=== PATIENT | male | born 1950 | race Caucasian/White ===

== ENCOUNTER 2016-07-10 21:26 | Emergency (ER) ==
[2016-07-10 21:35] VITALS: BP 116/71; TEMP 101.8; BMI 30.7
[2016-07-10 21:59] LABS: FLU INTERNAL QC INTERNAL QC VALID; RAPID FLU A NEGATIVE (NEGATIVE); RAPID FLU B NEGATIVE (NEGATIVE)
[2016-07-10] MEDS ORDERED: KEFLEX PO STA (22:05)
[2016-07-10] MEDS ORDERED: ROBITUSSIN AC SYRUP PO STA (22:05)
--- NOTE | 2016-07-10 22:08 | ED.PDOC ---
General ED Provider: Dr. FREEDOM DOUGLAS-ER Chief Complaint: Cough Stated Complaint: hipolito been coughing with fever and my body hurts Time Seen by Physician: 21:30 Mode of Arrival: Walk-In Information Source: Patient, Family Exam Limitations: No limitations Primary Care Provider: RAMIN DEVLIN Nursing and Triage Documentation Reviewed and Agree: Yes Respiratory Complaint Exam - Respiratory Complaint/Exam Onset/Duration: 24hrs Symptoms Are: Still present Timing: Intermittent Initial Severity: Mild Current Severity: Mild Location: Chest Character: Reports: Non-productive cough Aggravating: Reports: URI Alleviating: Reports: None Associated Signs and Symptoms: Reports: Fever, Chills, URI, Nasal congestion, Sore throat. Denies: Rapid breathing, Dyspnea, Chest pain, Pleuritic chest pain , Wheezing, Hemoptysis, Dizziness, Calf pain, Calf swelling, Edema, Hoarseness, Sinus discomfort, Vomiting, Weight loss, Decreased oral intake, Increased thirst , Increased appetite, Increased urination History of Healthcare-Acquired Pneumonia: No Tuberculosis Risk Factors: Reports: None Status Asthmaticus Risk Factors: Reports: None Home Oxygen Use: No Recent Stress Test: No Recent Echo/LV Function: No Current Antibiotic Use: No Current Asthma Medication Use: No Respiratory Distress: None Inadequate Respiratory Effort: No Dysphagia Present: No Stridor Present: No JVD Present: No Accessory Muscle Use: No Retractions: Not Present Diminished Breath Sounds: No Sinus Tenderness: None Grunting Respirations: No Kussmaul Respirations: No Differential Diagnoses: Bronchitis, URI, Influenza Review of Systems - Review Of Systems Constitutional: Reports: Chills, Fever Eyes: Reports: No symptoms Ears, Nose, Mouth, Throat: Reports: Nose discharge, Throat pain Respiratory: Reports: Cough Cardiac: Reports: No symptoms GI: Reports: No symptoms : Reports: No symptoms Musculoskeletal: Reports: No symptoms Skin: Reports: No symptoms Neurological: Reports: No symptoms Endocrine: Reports: No symptoms Hematologic/Lymphatic: Reports: No symptoms All Other Systems: Reviewed and Negative Past Medical History - Past Medical History Endocrine: Reports: DM 2, Hypothyroid Cardiovascular: Reports: CAD, Hypertension Respiratory: Reports: None Hematological: Reports: None Gastrointestinal: Reports: GERD Genitourinary: Reports: CKD Neuro/Psych: Reports: None Musculoskeletal: Reports: Arthritis Cancer: Reports: Skin Other Pertinent Past Medical History: NIDDM ,BLOOD STREAM CATHETER INFECTION - Surgical History General Surgical History: Reports: Orthopedic (-FX LEFT HUMERUS-SHOULDER REPLACEMENT RT--NEW JOINT TO GREAT TOE), Other ( SKIN CA ). Denies: Gastric Bypass (STOMACH VALVE SURG) - Family History Family History: Reports: Diabetes (sister poor control on pump) - Social History Smoking Status: Former smoker Hx Substance Use: No Alcohol Screening: None Lives: With family - Immunizations Tetanus Shot up to Date: Yes Physical Exam - Physical Exam Appearance: Well-appearing, No pain distress, Well-nourished Eyes: DIXON, EOMI, Conjunctiva clear ENT: Ears normal, Nose normal, Oropharynx normal Neck: Supple Respiratory: Rhonchi Cardiovascular: RRR, Pulses normal, No rub, No murmur GI/: Soft, Nontender, No masses, Bowel sounds normal, No Organomegaly Musculoskeletal: Normal strength Skin: Warm Neurological: Sensation intact, Motor intact, Reflexes intact, Cranial nerves intact, Alert, Oriented Psychiatric: Affect appropriate, Mood appropriate Interpretation - Radiology Interpretation Radiology Interpretation By: ED Physician Radiology Results: Negative Exam Interpreted: CXR Critical Care Note - Critical Care Note Total Time (mins): 0 Course - Course Orders, Labs, Meds: Lab Review 07/10/16 21:40 Influenza A (Rapid) Negative Influenza B (Rapid) Negative Orders Category Date Time Status MOLECULAR GROUP A STREP Stat LAB 07/10/16 21:40 Results RAPID FLU A/B Stat LAB 07/10/16 21:40 Completed STREP SCREEN Stat LAB 07/10/16 21:40 Results Cephalexin [Keflex] MEDS 07/10/16 22:05 Stat 500 mg PO ONCE STA Guaifenesin/Codeine Phosphate [Robitussin AC Syrup] MEDS 07/10/16 22:05 Stat 10 ml PO ONCE STA Oseltamivir Phosphate [Tamiflu] MEDS 07/10/16 22:30 Ordered 75 mg PO ONCE CXR [CHEST, 2 VIEWS PA & LAT] Stat RADS 07/10/16 21:37 Taken Vital Signs: Temp Pulse Resp BP Pulse Ox 07/10/16 21:27 101.8 F H 88 24 116/71 95 Departure - Departure Time of Disposition: 22:08 Disposition: HOME SELF-CARE Discharge Problem: Bronchitis URI (upper respiratory infection) Qualifiers: URI type: unspecified viral URI Qualifier Code: (J06.9) Acute upper respiratory infection, unspecified Instructions: Upper Respiratory Infection (ED) Condition: Good Pt referred to PMD for follow-up: Yes Additional Instructions: keflex 500mg bid x 7days--tamiflu 75mg bid x 5 days---robitussin ac 2 tsps q 6hrs prn cough 150cc--fluids...rest--rechck in 72hrs if not improved Allergies/Adverse Reactions: Allergies adhesive Adverse Reaction (Verified 07/10/16 21:34) latex Adverse Reaction (Verified 07/10/16 21:34) BETADYNE Adverse Reaction (Uncoded 07/10/16 21:34) Home Medications: Ambulatory Orders Albuterol Sulfate [Proair Hfa] 2 puff IH Q4H 08/09/13 Febuxostat [Uloric] 40 mg PO DAILY 08/09/13 Fenofibrate [Tricor] 160 mg PO BEDTIME 08/09/13 Finasteride [Proscar] 5 mg PO DAILY 08/09/13 Fluticasone Propionate [Flonase] 2 spray NS DAILY 08/09/13 Furosemide [Lasix Tab] 20 mg PO BIDAC 08/09/13 Glyburide [Diabeta] 10 mg PO BIDBRS 08/09/13 Levothyroxine Sodium [Synthroid] 125 mcg PO DAILY 08/09/13 Lisinopril [Zestril] 20 mg PO BID 08/09/13 Nebivolol HCl [Bystolic] 20 mg PO BID 08/09/13 Nifedipine [Procardia Xl] 60 mg PO DAILY 08/09/13 [place]-3 Fatty Acids [Fish Oil] 1,000 mg PO BID 08/09/13 Sitagliptin Phosphate [Januvia] 100 mg PO DAILY 08/09/13 Spironolactone [Aldactone] 25 mg PO BID 08/09/13 Dapagliflozin Propanediol [Farxiga] 10 mg PO DAILY #30 tablet 06/11/15 Fluticasone/Salmeterol 100/50 [Advair 100-50 Diskus] 1 puff IH BID 06/11/15 Sodium Bicarbonate 650 mg PO Q12H 06/11/15 Disposition Discussed With: Patient, Family
[2016-07-10] MEDS ORDERED: TAMIFLU ONE (22:09)
[2016-07-10] MEDS ORDERED: TAMIFLU PO SCH (22:30)
--- NOTE | 2016-07-11 03:34 | DI ---
EXAM: Chest, two views, 07/10/2016 HISTORY: Cough COMPARISON: 04/14/2010 FINDINGS / IMPRESSION: Cardiomediastinal contours appear within normal limits. Bibasilar atelectasis. No focal pulmonary consolidation. No pleural effusion or pneumothorax.
== END 2016-07-10 22:18 | disposition home or self-care (01) ==
LOC: ED 21:26
DX: J20.9 Acute bronchitis, unspecified (principal); J06.9 Acute upper respiratory infection, unspecified; Z87.891 Personal history of nicotine dependence
CPT/HCPCS: 87651; 87804; 87880; 99283

== ENCOUNTER 2016-08-23 22:16 | Emergency (ER) | payer OTHER ==
[2016-08-23] MEDS ORDERED: ZOFRAN 4 MG/2 ML IM STA (22:29)
[2016-08-23] MEDS ORDERED: PROTONIX IV IVP STA (22:29)
[2016-08-23 22:31] VITALS: BP 135/85; TEMP 100.4; BMI 30.9
--- NOTE | 2016-08-23 22:43 | ED.PDOC ---
General ED Provider: Dr. CHOLO GUO Chief Complaint: Nausea/Vomiting Stated Complaint: Nausea vomiting since 630 pm today, his had similar problem couple days ago, not hurting,. Time Seen by Physician: 22:41 Mode of Arrival: Walk-In Information Source: Patient Primary Care Provider: RAMIN DEVLIN Nursing and Triage Documentation Reviewed and Agree: Yes GI Complaint Exam - Vomiting/Diarrhea Complaint/Exam Symptoms Are: Still present Episodes of Vomiting over last 24 Hours: 5 Episodes of Diarrhea Over Last 24 Hours: 0 Initial Severity: Moderate Current Severity: Moderate Character of Vomiting: Reports: Non-bilious Aggravating: Reports: Food, Liquids, Position Alleviating: Reports: None Associated Signs and Symptoms: Reports: Cramping. Denies: Dizziness, Light- headedness, Melena, Hematemesis, Fever, Abdominal pain Related History: Reports: Similar episode Non-GI Risk Factors: Reports: None Surgical Obstruction Risk Factors: Reports: None Related Surgical History: Reports: None Abdominal Findings: Absent: Pulsatile mass, Abdominal distention, Hernia Differential Diagnoses: Viral Gastroenteritis, Bacterial Gastroenteritis Review of Systems - Review Of Systems Constitutional: Reports: Malaise, Weakness Eyes: Reports: No symptoms Ears, Nose, Mouth, Throat: Reports: No symptoms Respiratory: Reports: No symptoms Cardiac: Reports: No symptoms GI: Reports: Nausea, Vomiting : Reports: No symptoms Musculoskeletal: Reports: No symptoms Skin: Reports: No symptoms Neurological: Reports: No symptoms Endocrine: Reports: No symptoms Hematologic/Lymphatic: Reports: No symptoms All Other Systems: Reviewed and Negative Past Medical History - Past Medical History Endocrine: Reports: DM 2, Hypothyroid Cardiovascular: Reports: CAD, Hypertension Respiratory: Reports: None Hematological: Reports: None Gastrointestinal: Reports: GERD Genitourinary: Reports: CKD Neuro/Psych: 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 Denies: Gastric Bypass (STOMACH VALVE SURG) - Family History Family History: Reports: Diabetes (sister poor control on pump) - Social History Smoking Status: Former smoker Hx Substance Use: No Alcohol Screening: None - Immunizations Tetanus Shot up to Date: Yes Physical Exam - Physical Exam Appearance: Ill-appearing, Obese Ill-appearing: Moderate Eyes: DIXON, EOMI, Conjunctiva clear ENT: Ears normal, Nose normal, Oropharynx normal Respiratory: Airway patent, Breath sounds clear, Breath sounds equal, Respirations nonlabored Cardiovascular: RRR, Pulses normal, No rub, No murmur GI/: Soft, Nontender, No masses, No Organomegaly, Bowel sounds hyperactive Musculoskeletal: Normal strength, ROM intact, No edema, No calf tenderness Skin: Warm, Dry, Normal color Neurological: Sensation intact, Motor intact, Reflexes intact, Cranial nerves intact, Alert, Oriented Psychiatric: Affect appropriate, Mood appropriate Re-Evaluation - Re-Evaluation Time of Re-Evaluation: 23:53 Status: Improved Critical Care Note - Critical Care Note Total Time (mins): 0 Course - Course Hematology/Chemistry: 08/23/16 22:50 08/23/16 22:50 Orders, Labs, Meds: Lab Review 08/23/16 08/23/16 08/23/16 22:32 22:37 22:50 WBC 16.11 H RBC 6.25 H Hgb 18.3 H Hct 55.6 H MCV 89.0 MCH 29.3 MCHC 32.9 RDW Coeff of Valdemar 14.5 Plt Count 187 Immature Gran % (Auto) 0.6 Neut % (Auto) 87.6 Lymph % (Auto) 2.7 L [place] % (Auto) 7.8 Eos % (Auto) 0.7 Baso % (Auto) 0.6 Immature Gran # (Auto) 0.1 Neut # 14.1 H Lymph # 0.4 L [place] # 1.3 Eos # 0.1 Baso # 0.1 Sodium 139 Potassium 3.9 Chloride 107 Carbon Dioxide 24 Anion Gap 11.9 BUN 23 H Creatinine 1.11 H Estimated GFR (MDRD) 66.00 BUN/Creatinine Ratio 20.72 Glucose 196 H Calcium 8.3 Total Bilirubin 0.57 AST 11 L ALT 12 Alkaline Phosphatase 70 Total Protein 6.3 Albumin 3.6 Globulin 2.7 Albumin/Globulin Ratio 1.33 Amylase 43 Lipase 36 Urine Color Yellow Urine Clarity Clear Urine pH 5.5 Ur Specific [place] 1.010 Urine Protein Negative Urine Glucose (UA) 2+ Urine Ketones Trace Urine Blood Negative Urine Nitrite Negative Urine Bilirubin Negative Urine Urobilinogen 0.2 Ur Leukocyte Esterase Negative Influenza A (Rapid) Negative Influenza B (Rapid) Negative Orders Category Date Time Status ED IV/MEDIPORT/POWERPORT .ONCE EMERGENCY 08/23/16 22:29 Active AMYLASE Stat LAB 08/23/16 22:50 Completed CBC W/ AUTO DIFF Stat LAB 08/23/16 22:50 Completed COMPREHENSIVE METABOLIC PANEL Stat LAB 08/23/16 22:50 Completed LIPASE Stat LAB 08/23/16 22:50 Completed RAPID FLU A/B Stat LAB 08/23/16 22:32 Completed URINALYSIS C & S IF INDICATED Stat LAB 08/23/16 22:37 Completed 0.9 % Sodium Chloride [Saline Flush] MEDS 08/23/16 22:29 Ordered 1 syr IVF PRN PRN Ondansetron HCl/Pf [Zofran 4 mg/2 ml] MEDS 08/23/16 22:29 Discontinued 4 mg IM ONCE STA Pantoprazole Sodium [Protonix IV] MEDS 08/23/16 22:29 Discontinued [address] ABDOMEN/PELVIS WO CONTRAST Stat RADS 08/23/16 22:29 Completed Medications Generic Name Dose Route Start Last Admin Trade Name Freq PRN Reason Stop Dose Admin Sodium Chloride 1 syr 08/23/16 22:29 Saline Flush IVF PRN PRN To flush IV Discontinued Medications Generic Name Dose Route Start Last Admin Trade Name Freq PRN Reason Stop Dose Admin Ondansetron HCl 4 mg 08/23/16 22:29 08/23/16 23:10 Zofran 4 Mg/2 Ml IM 08/23/16 22:30 4 mg ONCE STA Administration Pantoprazole Sodium 40 mg 08/23/16 22:29 08/23/16 23:09 Protonix Iv IVP 08/23/16 22:30 40 mg ONCE STA Administration Vital Signs: Temp Pulse Resp BP Pulse Ox 08/23/16 22:17 100.4 F H 89 20 135/85 95 Departure - Departure Time of Disposition: 23:57 Disposition: HOME SELF-CARE Discharge Problem: Gastroenteritis Instructions: Dehydration (ED), Gastroenteritis (ED) Condition: Stable Pt referred to PMD for follow-up: Yes Additional Instructions: increase hydration soft diet for 3-4 days Prescriptions: Ondansetron [Zofran Odt] 4 mg PO Q8H #20 tab.rapdis Allergies/Adverse Reactions: Allergies adhesive Adverse Reaction (Verified 08/23/16 22:25) latex Adverse Reaction (Verified 08/23/16 22:25) BETADYNE Adverse Reaction (Uncoded 08/23/16 22:25) Home Medications: Ambulatory Orders Albuterol Sulfate [Proair Hfa] 2 puff IH Q4H PRN 08/09/13 Fluticasone Propionate [Flonase] 1 spray NS DAILY PRN 08/09/13 Levothyroxine Sodium [Synthroid] 125 mcg PO DAILY 08/09/13 Lisinopril [Zestril] 20 mg PO BID 08/09/13 Nifedipine [Procardia Xl] 60 mg PO DAILY 08/09/13 Acetaminophen/Diphenhydramine [Tylenol Pm Ex-Strength Caplet] 2 each PO BEDTIME 07/10/16 Aspirin [Aspirin EC] 81 mg PO DAILYWM 07/10/16 Citalopram Hydrobromide [Citalopram HBr] 20 mg PO DAILY 07/10/16 Clopidogrel Bisulfate [Clopidogrel] 75 mg PO DAILY 07/10/16 Omeprazole [Prilosec] 20 mg PO QDAC 07/10/16 Ondansetron [Zofran Odt] 4 mg PO Q8H #20 tab.rapdis 08/23/16 Disposition Discussed With: Patient, Family
[2016-08-23 22:45] LABS: BILIRUBIN,URINE Negative (NEGATIVE); KETONES,URINE Trace (NEGATIVE); LEUKOCYTE ESTERASE ,URINE Negative (NEGATIVE); NITRITE,URINE Negative (NEGATIVE); PH,URINE 5.5 (5-9); PROTEIN,URINE Negative (NEGATIVE); URINE, BLOOD Negative (NEGATIVE)
[2016-08-23 22:46] LABS: ADD URINE MICROSCOPIC NO
[2016-08-23 22:58] LABS: FLU INTERNAL QC INTERNAL QC VALID; RAPID FLU A NEGATIVE (NEGATIVE); RAPID FLU B NEGATIVE (NEGATIVE)
[2016-08-23 23:02] LABS: BASOPHILS # (AUTO) 0.1 K/uL (0-0.2); BASOPHILS % (AUTO) 0.6 % (0.0-3.0); EOSINOPHILS # (AUTO) 0.1 K/ul (0.0-0.7); EOSINOPHILS % (AUTO) 0.7 % (0.0-7.0); HEMATOCRIT 55.6 % (42.0-52.0); HEMOGLOBIN 18.3 g/dl (14.0-18.0); IMMATURE GRANULOCYTE % (AUTO) 0.6 % (0.0-5.0); LYMPHOCYTES # (AUTO) 0.4 K/uL (0.60-3.4); LYMPHOCYTES % (AUTO) 2.7 (10.0-50.0); MEAN CORPUSCULAR HEMOGLOBIN 29.3 pg (27.0-31.0); MEAN CORPUSCULAR HGB CONC 32.9 (31.8-35.4); MONOCYTES # (AUTO) 1.3 K/uL (0.4-2.0); MONOCYTES % (AUTO) 7.8 (0-10); NEUTROPHILS # (AUTO) 14.1 K/ul (2.0-6.9); NEUTROPHILS % (AUTO) 87.6; PLATELET COUNT 187 10^3/uL (140-440); RED BLOOD COUNT 6.25 10^6/ul (4.70-6.10); WHITE BLOOD COUNT 16.11 K/ul (4.2-10.2)
--- NOTE | 2016-08-23 23:09 | CT ---
EXAM: CT of the abdomen and pelvis without contrast. HISTORY: Nausea vomiting and abdominal pain. PROCEDURE: Contiguous axial CT images of the abdomen and pelvis without contrast with coronal and s agittal reformats. FINDINGS: The liver is normal in appearance. The gallbladder is surgically absent. The pancreas, s pleen, adrenal glands and right kidney are normal in appearance. There is a fluid density cyst in t he left kidney. There is mild focal aneurysmal dilatation of the infrarenal abdominal aorta which me asures up to 2.9 cm in diameter with no evidence of aneurysm leak. The appendix is normal in appeara nce. There is fecal stasis in the colon. There is diverticulosis of the colon with no evidence of diverticulitis. No bowel obstruction. No free fluid or free air in the abdomen or pelvis. The bladde r is minimally filled with no abnormality identified. There are degenerative changes in the spine. Impression: Diverticulosis of the colon without diverticulitis. Fecal stasis in the colon. Infrarenal abdominal aortic aneurysm as described. Simple left renal cysts. Cholecystectomy.
[2016-08-23 23:15] LABS: ALBUMIN 3.6 g/dL (3.4-5.0); ALBUMIN/GLOBULIN RATIO 1.33; ANION GAP 11.9; BILIRUBIN,TOTAL 0.57 mg/dL (0.00-1.20); BUN/CREATININE RATIO 20.72; CALCIUM 8.3 mg/dL (8.2-10.2); CREATININE 1.11 mg/dL (0.60-1.10); POTASSIUM 3.9 mmol/L (3.5-5.1); TOTAL PROTEIN 6.3 g/dL (5.8-8.1)
== END 2016-08-24 00:10 | disposition home or self-care (01) ==
LOC: ED 22:16
DX: K52.9 Noninfective gastroenteritis and colitis, unspecified (principal); E86.0 Dehydration; E11.9 Type 2 diabetes mellitus without complications; E03.9 Hypothyroidism, unspecified; I10 Essential (primary) hypertension; Z79.899 Other long term (current) drug therapy
CPT/HCPCS: 36415; 80053; 81001; 82150; 83690; 85025; 87804; 96374; 96375; 99283

== ENCOUNTER 2017-06-19 14:15 | Outpatient (CLI) ==
--- NOTE | 2017-06-19 14:44 | DI ---
EXAM: LEFT WRIST THREE VIEWS HISTORY: Wrist pain FINDINGS / IMPRESSION: Compared to 09/30/2008. General bone density may be mildly decreased. There is subtle osteoarthritis involving the radiocarp al and first carpal-metacarpal joints. Incidental note of a pseudoarticulation between the distal ul na and radius with ulnar negative variance. No fracture or joint dislocation.
== END 2017-06-19 14:16 | disposition home or self-care (01) ==
LOC: RAD 14:15
PROVIDERS: ATTEND Family Medicine
DX: M25.532 Pain in left wrist (principal)

== ENCOUNTER 2017-11-21 16:35 | Outpatient (CLI) | payer OTHER ==
--- NOTE | 2017-11-21 22:29 | DI ---
EXAM: Two-view chest HISTORY: Cough COMPARISON: Two-view chest 07/10/2016 FINDINGS: The cardiomediastinal silhouette is stable.. There is a hiatal hernia. Basilar atelectas is versus scarring overlying the left lateral costophrenic angle. IMPRESSION: Hiatal hernia. Minimal atelectasis versus scarring overlying the left lateral costophrenic angle
== END 2017-11-21 16:36 | disposition home or self-care (01) ==
LOC: RAD 16:35
PROVIDERS: ATTEND Family Medicine
DX: T17.908D Unspecified foreign body in respiratory tract, part unspecified causing other injury, subsequent encounter (principal); R05 Cough; R06.2 Wheezing; Z86.73 Personal history of transient ischemic attack (TIA), and cerebral infarction without residual deficits

== ENCOUNTER 2018-08-20 20:23 | Emergency (ER) ==
[2018-08-20] MEDS ORDERED: LACTATED RINGERS 1,000 ML IV STA (20:33)
[2018-08-20] MEDS ORDERED: ZOFRAN 4 MG/2 ML IVP STA (20:33)
[2018-08-20] MEDS ORDERED: MORPHINE 4 MG/ML SYRINGE IVP STA (20:33)
[2018-08-20 20:34] VITALS: BMI 34.9
--- NOTE | 2018-08-20 20:42 | ED.PDOC ---
General ED Provider: Dr. FELICITA JOHNSON Chief Complaint: Abdominal Pain Stated Complaint: Patient is a 68 year old male who comes to the ER with severe diffuse abdominal pain that started after eating supper tonight probably one hours ago. states his abdomen is severely distended. Last bowel movement was today. Had had a prior history of Herital hernia and fudoplication. Time Seen by Physician: 20:40 Mode of Arrival: Walk-In Information Source: Patient Exam Limitations: Clinical condition Primary Care Provider: RAMIN DEVLIN Nursing and Triage Documentation Reviewed and Agree: Yes Does patient meet sepsis criteria?: No System Inflammatory Response Syndrome: Not Applicable Sepsis Protocol: For patient's 13 years and over: Temp is 96.8 and below OR 101 and greater Pulse >90 BPM Resp >20/minute Acutely Altered Mental Status Are patient's symptoms suggestive of a new infection, such as: -Pneumonia -Skin, Soft Tissue -Endocarditis -UTI -Bone, Joint Infection -Implantable Device -Acute Abdominal Infection -Wound Infection -Meningitis -Blood Stream Catheter Infection -Unknown GI Complaint Exam - Abdominal Pain Complaint/Exam Onset: Sudden Duration: 2 hours Symptoms Are: Still present Timing: Constant Initial Severity: Severe Current Severity: Severe Location of Pain: Diffuse Character: Reports: Aching, Throbbing, Cramping Alleviating: Reports: None Associated Signs and Symptoms: Reports: Nausea AAA Risk Factors: Reports: Hypertension Cardiac Risk Factors: Reports: DM, Hypertension, CAD Testicular Torsion Risk Factors: Reports: None Surgical Obstruction Risk Factors: Reports: Colicky abdominal pain, Prior abdominal surgery Related Surgical History: Reports: Cholecystectomy, Appendectomy Abdominal Findings: Present: Abdominal distention (severely), Peritoneal signs Differential Diagnoses: Bowel Obstruction, Diverticulitis, Pancreatitis, GB, PUD Quality Indicators for AMI: EKG in 10min. Quality Indicator For Non-Traumatic Chest Pain/Syncope: EKG Performed Review of Systems - Review Of Systems Constitutional: Reports: Loss of appetite Eyes: Reports: No symptoms Ears, Nose, Mouth, Throat: Reports: No symptoms Respiratory: Reports: No symptoms Cardiac: Reports: No symptoms GI: Reports: Abdominal pain, Nausea, Poor appetite, Vomiting : Reports: No symptoms Musculoskeletal: Reports: No symptoms Skin: Reports: No symptoms Neurological: Reports: Anxiety All Other Systems: Reviewed and Negative Past Medical History - Past Medical History Endocrine: Reports: DM 2, Hypothyroid Cardiovascular: Reports: CAD, Hypertension Respiratory: Reports: None Hematological: Reports: None Gastrointestinal: Reports: GERD Genitourinary: Reports: CKD 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 - Surgical History General Surgical History: Reports: Appendectomy, Cholecystectomy, Orthopedic (- FX LEFT HUMERUS-SHOULDER REPLACEMENT RT--NEW JOINT TO GREAT TOE), Other (Skin cancer ). Denies: Gastric Bypass (STOMACH VALVE SURG) - Family History Family History: Reports: Diabetes (sister poor control on pump) - Social History Smoking Status: Former smoker Hx Substance Use: No Alcohol Screening: None - Immunizations Tetanus Shot up to Date: Yes Physical Exam - Physical Exam Appearance: Ill-appearing, Obese Ill-appearing: Severe Pain Distress: Severe Eyes: Conjunctiva clear ENT: Oropharynx normal Neck: Supple Respiratory: Airway patent, Breath sounds clear, Breath sounds equal, Respirations nonlabored Cardiovascular: RRR, Pulses normal, No rub, No murmur GI/: Bowel sounds normal, Tender Musculoskeletal: Normal strength, ROM intact, No edema, No calf tenderness Skin: Warm, Dry, Normal color Neurological: Alert, Oriented Psychiatric: Anxious Interpretation - Radiology Interpretation Radiology Interpretation By: Radiologist Radiology Results: Positive Exam Interpreted: CT Scan - Geophysical Party Chief Rate: Normal Rhythm: Sinus - EKG Interpretation Time of EKG #1: 20:35 Rate: Normal Rhythm: Sinus [place]: NL ST Segment: Normal Interpretation: RSR' Re-Evaluation - Re-Evaluation Time of Re-Evaluation: 21:49 Status: Improved (slighlty after NG tube Placement ) Vital Signs Stable: Yes Physician Notification - Case Discussed Physician Notified: Dr Antoine Time of Notification: 21:45 (transfer to the ER) Physician Notified: Dr. Lyle Time of Notification: 21:50 (accepted for transfer ) Critical Care Note - Critical Care Note Total Time (mins): 80 Comments: NG tube noted to be in the upper esophagus. EMS called and asked to remove it Course - Course Hematology/Chemistry: 08/20/18 20:38 08/20/18 20:38 Orders, Labs, Meds: Lab Review 08/20/18 08/20/18 08/20/18 20:38 20:38 20:51 WBC 9.94 RBC 5.25 Hgb 15.3 Hct 47.5 MCV 90.5 MCH 29.1 MCHC 32.2 RDW Coeff of Valdemar 14.5 Plt Count 168 Immature Gran % (Auto) 0.5 Neut % (Auto) 69.4 Lymph % (Auto) 20.5 [place] % (Auto) 7.7 Eos % (Auto) 1.4 Baso % (Auto) 0.5 Immature Gran # (Auto) 0.1 Neut # (Auto) 6.9 Lymph # (Auto) 2.0 [place] # (Auto) 0.8 Eos # (Auto) 0.1 Baso # (Auto) 0.1 Puncture Site O2 Saturation ABG pH ABG pCO2 ABG pO2 ABG HCO3 ABG Total CO2 ABG Base Excess J Luis Test O2 Delivery Device Oxygen Liter Flow FiO2 % Sodium 139.6 Potassium 3.75 Chloride 102.6 Carbon Dioxide 25.6 Anion Gap 15.15 BUN 17.2 Creatinine 0.81 Estimated GFR (MDRD) 94.00 BUN/Creatinine Ratio 21.23 Glucose 212.6 H Lactic Acid Calcium 9.21 Total Bilirubin 0.44 AST 34.8 ALT 24.9 Alkaline Phosphatase 86.1 Total Protein 7.23 Albumin 4.34 Globulin 2.89 Albumin/Globulin Ratio 1.50 Amylase 221.9 H Lipase 3352.1 H Procalcitonin < 0.05 08/20/18 08/20/18 20:51 22:00 WBC RBC Hgb Hct MCV MCH MCHC RDW Coeff of Valdemar Plt Count Immature Gran % (Auto) Neut % (Auto) Lymph % (Auto) [place] % (Auto) Eos % (Auto) Baso % (Auto) Immature Gran # (Auto) Neut # (Auto) Lymph # (Auto) [place] # (Auto) Eos # (Auto) Baso # (Auto) Puncture Site Rrad O2 Saturation 82.0 L ABG pH 7.110 L* ABG pCO2 81.5 H ABG pO2 64.0 L ABG HCO3 25.9 ABG Total CO2 28 ABG Base Excess -4 L J Luis Test + O2 Delivery Device Nrb Oxygen Liter Flow 15.00 FiO2 % 100.0 Sodium Potassium Chloride Carbon Dioxide Anion Gap BUN Creatinine Estimated GFR (MDRD) BUN/Creatinine Ratio Glucose Lactic Acid 1.12 Calcium Total Bilirubin AST ALT Alkaline Phosphatase Total Protein Albumin Globulin Albumin/Globulin Ratio Amylase Lipase Procalcitonin Orders Category Date Time Status ABG DRAW REQUEST Stat CARDIO 08/20/18 22:08 Completed EKG-(ED ONLY) Stat CARDIO 08/20/18 20:33 Completed NEBULIZER TREATMENT Stat CARDIO 08/20/18 22:07 Completed ED IV/MEDIPORT/POWERPORT .ONCE EMERGENCY 08/20/18 20:33 Active NG Tube [ED NASOGASTRIC TUBE INSERTION] .ONCE EMERGENCY 08/20/18 21:26 Active ABG Stat LAB 08/20/18 22:00 Completed AMYLASE Stat LAB 08/20/18 20:38 Completed BLOOD CULTURE (ED ONLY) Stat LAB 08/20/18 20:51 Received CBC W/ AUTO DIFF Stat LAB 08/20/18 20:38 Completed COMPREHENSIVE METABOLIC PANEL Stat LAB 08/20/18 20:38 Completed LACTIC ACID Stat LAB 08/20/18 20:51 Completed LIPASE Stat LAB 08/20/18 20:38 Completed PROCALCITONIN Stat LAB 08/20/18 20:51 Completed 0.9 % Sodium Chloride [Saline Flush] MEDS 08/20/18 20:33 Discontinued 1 syr IVF PRN PRN Hydromorphone HCl [Dilaudid 1 mg/ml Syringe] MEDS 08/20/18 20:47 Discontinued 1 mg IVP ONCE STA Hydromorphone HCl [Dilaudid 1 mg/ml Syringe] MEDS 08/20/18 21:27 Discontinued 1 mg IVP ONCE STA Ipratropium/Albuterol Neb [Duoneb] MEDS 08/20/18 22:07 Discontinued 1 vial NEB .STK-MED ONE Ipratropium/Albuterol Neb [Duoneb] MEDS 08/20/18 22:07 Discontinued 1 vial NEB ONCE STA Morphine Sulfate [Morphine 4 mg/ml Syringe] MEDS 08/20/18 20:33 Discontinued 4 mg IVP ONCE STA Ondansetron HCl/Pf [Zofran 4 mg/2 ml] MEDS 08/20/18 20:33 Discontinued 4 mg IVP ONCE STA Ringers Lactated Solution [Lactated Ringers] 1,000 ml MEDS 08/20/18 20:33 Discontinued IV BOLUS CHEST, 1V AP ONLY Stat RADS 08/20/18 21:[address] ABD/PEL WO RENAL STONE PROT Stat RADS 08/20/18 20:[address] CHEST W/O CONTRAST Stat RADS 08/20/18 21:21 Completed Medications Discontinued Medications Generic Name Dose Route Start Last Admin Trade Name Freq PRN Reason Stop Dose Admin Albuterol/Ipratropium 1 vial 08/20/18 22:07 Duoneb NEB 08/20/18 22:08 ONCE STA Hydromorphone HCl 1 mg 08/20/18 20:47 08/20/18 20:51 Dilaudid 1 Mg/Ml Syringe IVP 08/20/18 20:48 1 mg ONCE STA Administration Hydromorphone HCl 1 mg 08/20/18 21:27 08/20/18 21:30 Dilaudid 1 Mg/Ml Syringe IVP 08/20/18 21:28 1 mg ONCE STA Administration Lactated Ringer's 1,000 mls @ 1,000 mls/hr 08/20/18 20:33 08/20/18 20:45 Lactated Ringers IV 08/20/18 21:32 1,000 mls/hr BOLUS STA Administration Morphine Sulfate 4 mg 08/20/18 20:33 08/20/18 20:44 Morphine 4 Mg/Ml Syringe IVP 08/20/18 20:34 4 mg ONCE STA Administration Ondansetron HCl 4 mg 08/20/18 20:33 08/20/18 20:43 Zofran 4 Mg/2 Ml IVP 08/20/18 20:34 4 mg ONCE STA Administration Sodium Chloride 1 syr 08/20/18 20:33 08/20/18 20:44 Saline Flush IVF 1 syr PRN PRN Administration To flush IV Vital Signs: Temp Pulse Resp BP Pulse Ox 08/20/18 21:35 100.1 F H 79 18 143/90 H 98 08/20/18 20:23 95.0 F L 70 18 174/90 H 92 L Departure - Departure Time of Disposition: 22:20 Disposition: TSF SHORT-TRM HOSP Discharge Problem: Abdominal pain Pancreatitis, acute Qualifiers: Pancreatitis type: idiopathic Acute pancreatitis complication: no infection or necrosis Qualified Code(s): K85.00 - Idiopathic acute pancreatitis without necrosis or infection Respiratory failure with hypoxia Qualifiers: Chronicity: acute Qualified Code(s): J96.01 - Acute respiratory failure with hypoxia Respiratory failure with hypercapnia Qualifiers: Chronicity: acute Qualified Code(s): J96.02 - Acute respiratory failure with hypercapnia Instructions: Pancreatitis (ED) Condition: Critical Pt referred to PMD for follow-up: Yes IPMP verified?: Yes Allergies/Adverse Reactions: Allergies adhesive Adverse Reaction (Verified 08/23/16 22:25) latex Adverse Reaction (Verified 08/23/16 22:25) BETADYNE Adverse Reaction (Uncoded 08/23/16 22:25) Home Medications: Ambulatory Orders Albuterol Sulfate [Proair Hfa] 2 puff IH Q4H PRN 08/09/13 Fluticasone Propionate [Flonase] 1 spray NS DAILY PRN 08/09/13 Levothyroxine Sodium [Synthroid] 125 mcg PO DAILY 08/09/13 Lisinopril [Zestril] 20 mg PO BID 08/09/13 Nifedipine [Procardia Xl] 60 mg PO DAILY 08/09/13 Acetaminophen/Diphenhydramine [Tylenol Pm Ex-Strength Caplet] 2 each PO BEDTIME 07/10/16 Aspirin [Aspirin EC] 81 mg PO DAILYWM 07/10/16 Citalopram Hydrobromide [Citalopram HBr] 20 mg PO DAILY 07/10/16 Clopidogrel Bisulfate [Clopidogrel] 75 mg PO DAILY 07/10/16 Omeprazole [Prilosec] 20 mg PO QDAC 07/10/16 Atorvastatin Calcium 40 mg PO DAILY 08/20/18 Benzonatate 100 mg PO DAILY 08/20/18 Budesonide [Pulmicort 0.5 mg/2 ml] 1 vial NEB DAILY 08/20/18 Cholecalciferol (Vitamin D3) [Vitamin D3] 2,000 unit PO DAILY 08/20/18 Clotrimazole [Lotrimin] 1 applic TP BID 08/20/18 Docusate Sodium 100 mg PO DAILY 08/20/18 Doxazosin Mesylate [Cardura] 6 mg PO DAILY 08/20/18 Empaglifozin [Jardiance] 10 mg PO DAILY 08/20/18 Fexofenadine HCl [Fatmata] 60 mg PO DAILY 08/20/18 Fluticasone/Salmeterol 100/50 [Advair 100-50 Diskus] 1 puff INH DAILY 08/20/18 Guaifenesin [Mucinex] 600 mg PO DAILY 08/20/18 Ipratropium/Albuterol Neb [Duoneb] 1 vial NEB RTQ6H PRN 08/20/18 Neomycin/Polymyxin B/Dexametha [Maxitrol Eye Drops] 1 drop EACHEYE Q4H 08/20/18 Polyethylene Glycol 3350 [Miralax] 17 gm PO DAILY 08/20/18 Triamcinolone Acetonide [Kenalog 0.1%] 1 applic TP TID 08/20/18 Pt. Stabilized Within Hospital's Capabilities/Transferred To: [facility] Transfer Form Completed: Yes Disposition Discussed With: Patient, Family
[2018-08-20] MEDS ORDERED: DILAUDID 1 MG/ML SYRINGE IVP STA ×2 (20:47→21:27)
[2018-08-20 21:36] VITALS: BP 143/90; TEMP 100.1
--- NOTE | 2018-08-20 22:03 | CT ---
Exam: CT of the chest without contrast History: Abdominal pain and distension which shortness of breath Technique: [address] of the chest without contrast FINDINGS: Lung windows show no significant pulmonary parenchymal abnormality. Mild atherosclerotic calcification of the aorta without aneurysm. No acute findings of the chest wall soft tissues or bon y thorax. Right shoulder arthroplasty. See abdominal CT same day for upper abdomen. Impression: No acute findings of the chest
--- NOTE | 2018-08-20 22:05 | CT ---
EXAM: CT abdomen and pelvis without contrast. HISTORY: Diffuse abdominal pain, distension, TECHNIQUE: Multi-slice transaxial helical CT. Coronal and sagittal reformatons were performed. COMPARISON: 08/23/2016. FINDINGS: See same day CT chest for chest findings. Evaluation of the solid organs is limited without IV contrast. The spleen is mildly enlarged measuri ng up to 13.4 cm in length. The gallbladder has been removed. No definite intrahepatic biliary duct al dilation is seen. A small cyst within the inferior pole of the left kidney measures up to 2.3 cm in size. The pancreas and the bilateral adrenal glands appear grossly unremarkable within the confin es of this exam. The stomach is diffusely dilated with gas and ingested material. Proximal small bowel is dilated marybeth suring up to 4.5 cm in diameter. The small bowel appears diffusely dilated without distinct transiti on point. The colon appears relatively collapsed. The appendix appears normal in size. Urinary blad boone appears grossly unremarkable. No significant pelvic free fluid is seen. Multiple diverticuli ar e seen within the colon. Lower lumbar disc space narrowing with small endplate osteophytes are seen. IMPRESSION: 1. Diffusely dilated stomach and small bowel without distinct transition point. Differential includ es severe ileus versus obstruction near the terminal ileum. The colon appears relatively collapsed torres ggesting an occult obstruction. 2. Colonic diverticulosis without diverticulitis. 3. Mild splenomegaly. 4. Prior cholecystectomy. I discussed with Dr. Gustafson at 10:01 p.m. on the same date of exam.
[2018-08-20] MEDS ORDERED: DUONEB NEB STA (22:07)
[2018-08-20] MEDS ORDERED: DUONEB NEB ONE (22:07)
--- NOTE | 2018-08-20 22:50 | DI ---
Exam: Chest one-view History: Tube placement Findings / impression: Midline tube not seen beyond the mid chest. Free intraperitoneal gas just be neath the diaphragms new since earlier study. Critical result: The findings were discussed with ordering physician at 2247 hours Central time.
== END 2018-08-20 22:10 | disposition short-term general hospital (02) ==
LOC: ED 20:23
DX: K85.00 Idiopathic acute pancreatitis without necrosis or infection (principal); J96.01 Acute respiratory failure with hypoxia; J96.02 Acute respiratory failure with hypercapnia; E11.9 Type 2 diabetes mellitus without complications; I10 Essential (primary) hypertension; I25.10 Atherosclerotic heart disease of native coronary artery without angina pectoris; R14.0 Abdominal distension (gaseous); R11.2 Nausea with vomiting, unspecified; E03.9 Hypothyroidism, unspecified; N18.9 Chronic kidney disease, unspecified; K21.9 Gastro-esophageal reflux disease without esophagitis; R00.0 Tachycardia, unspecified; R10.84 Generalized abdominal pain; Z87.19 Personal history of other diseases of the digestive system; Z79.899 Other long term (current) drug therapy; Z86.73 Personal history of transient ischemic attack (TIA), and cerebral infarction without residual deficits; Z98.84 Bariatric surgery status
CPT/HCPCS: 36415; 74176; 80053; 82150; 82803; 83605; 83690; 84145; 85025; 87040; 93005; 93010; 96361; 96374; 96375; 96376; 99285